=== PATIENT | male | born 1985 | race Caucasian/White ===

== ENCOUNTER 2017-06-21 18:38 | Emergency (ER) | payer MEDICAID ==
[~2017-06-21] VITALS: Ht 190.5 cm; Wt 65.0 kg
[~2017-06-21 18:38] MED LIST: CLON0.5T; FLUO40CA9 PO; PROP20TA
[2017-06-21] MEDS ORDERED: SODIUM CHLORIDE 0.9% 1,000 ML IV ONE (18:57)
[2017-06-21] MEDS ORDERED: ONDANSETRON 2MG/ML, 2ML IVPush ONE (19:00)
[2017-06-21] MEDS ORDERED: SODIUM CHLORIDE 0.9% 1,000ML IVBOLUS ONE (19:00)
[2017-06-21] MEDS ORDERED: ONDANSETRON 2MG/ML, 2ML ONE (19:21)
[2017-06-21] MEDS ORDERED: MORPHINE SULFATE 4 MG/ML, 1ML ONE ×2 (19:21→20:24)
[2017-06-21] MEDS: MORPHINE SULFATE 4 MG/ML, 1ML IVPush PRN ×2 (19:34→20:27)
[2017-06-21] MEDS ORDERED: LIDOCAINE 1%, 20ML SQ ONE (20:00)
[2017-06-21] MEDS ORDERED: DIPH,PERTUSS(ACELL),TET VAC/PF 0.5 ML IM-VACC ONE ×2 (20:00→20:25)
[2017-06-21] MEDS ORDERED: LIDOCAINE 1%, 20ML ONE (20:24)
[2017-06-21] MEDS ORDERED: BACITRACIN ZINC OINT 500U/GM, 0.9 GM ONE (21:45)
[2017-06-21 22:03] VITALS: BP 129/87
== END 2017-06-21 22:06 | disposition home or self-care (01) ==
LOC: ED 21:08
DX: S02.2XXA Fracture of nasal bones, initial encounter for closed fracture (principal); S01.112A Laceration without foreign body of left eyelid and periocular area, initial encounter; S01.81XA Laceration without foreign body of other part of head, initial encounter; S40.022A Contusion of left upper arm, initial encounter; F41.9 Anxiety disorder, unspecified; V29.3XXA Motorcycle rider (driver) (passenger) injured in unspecified nontraffic accident, initial encounter; Y92.89 Other specified places as the place of occurrence of the external cause; Y99.8 Other external cause status; Y93.55 Activity, bike riding
CPT/HCPCS: 12011; 70450; 70486; 72125; 73030; 73060; 90471; 90715; 96361; 96374; 96375; 96376; 99285; J2405; J7030; 12013; 12014

== ENCOUNTER 2018-01-29 02:32 | Emergency (ER) | payer MEDICAID ==
[~2018-01-29] VITALS: Ht 190.5 cm; Wt 70.7 kg
[2018-01-29 02:34] VITALS: BP 144/101
[2018-01-29] MEDS ORDERED: HYDROmorphone 1 MG/ML, 1ML IM ONE (03:00)
[2018-01-29] MEDS ORDERED: HYDROmorphone 2 MG/ML, 1ML ONE (03:04)
[2018-01-29 03:09] LABS: MICROSCOPIC INDICATED
[2018-01-29 03:10] LABS: CULTURE INDICATED? YES
[2018-01-29 03:21] LABS: AMPHETAMINE SCREEN, URINE Positive (Negative); BARBITURATE SCREEN, URINE Negative (Negative); BENZODIAZEPINE SCREEN, URINE Negative (Negative); CANNABINOID SCREEN, URINE Negative (Negative); COCAINE SCREEN, URINE Negative (Negative); METHADONE SCREEN, URINE Negative (Negative); OPIATE SCREEN, URINE Negative (Negative)
[2018-01-29] MEDS ORDERED: CEFTRIAXONE 250 MG ONE (04:24)
[2018-01-29] MEDS ORDERED: CEFTRIAXONE 1,000 MG IM ONE (04:30)
== END 2018-01-29 04:36 | disposition left against medical advice (07) ==
LOC: ED 03:34
DX: N45.1 Epididymitis (principal); F15.10 Other stimulant abuse, uncomplicated; F17.200 Nicotine dependence, unspecified, uncomplicated; Z79.899 Other long term (current) drug therapy
CPT/HCPCS: 76870; 80307; 81001; 87086; 87491; 87591; 93975; 96372; 99285; J1170

== ENCOUNTER 2018-07-27 17:41 | Emergency (ER) | payer MEDICAID | END 2018-07-27 18:12 | disposition left against medical advice (07) | LOC: ED 18:06 | DX: R11.2 Nausea with vomiting, unspecified (principal); R19.7 Diarrhea, unspecified; Z53.21 Procedure and treatment not carried out due to patient leaving prior to being seen by health care provider ==

== ENCOUNTER 2018-08-24 20:22 | Emergency (ER) | payer SELFPAY ==
[~2018-08-24] VITALS: Ht 193 cm; Wt 69.0 kg
[2018-08-24 20:26] VITALS: BP 142/104
[2018-08-24 21:09] LABS: AMPHETAMINE SCREEN, URINE Positive (Negative); BARBITURATE SCREEN, URINE Negative (Negative); BENZODIAZEPINE SCREEN, URINE Negative (Negative); CANNABINOID SCREEN, URINE Positive (Negative); COCAINE SCREEN, URINE Negative (Negative); METHADONE SCREEN, URINE Negative (Negative); OPIATE SCREEN, URINE Negative (Negative)
[2018-08-24] MEDS ORDERED: RISPERIDONE 2 MG TABLET ONE (21:15)
[2018-08-24] MEDS ORDERED: RISPERIDONE 1 MG TABLET PO ONE (21:30)
== END 2018-08-24 22:54 | disposition home or self-care (01) ==
LOC: ED 21:08
DX: F28 Other psychotic disorder not due to a substance or known physiological condition (principal); F32.9 Major depressive disorder, single episode, unspecified; R44.3 Hallucinations, unspecified; F17.210 Nicotine dependence, cigarettes, uncomplicated; F41.1 Generalized anxiety disorder
CPT/HCPCS: 80307; 99284

== ENCOUNTER 2018-10-11 18:15 | Emergency (ER) | payer MEDICAID ==
[~2018-10-11] VITALS: Ht 193 cm; Wt 70.0 kg
[2018-10-11 19:52] LABS: RAPID INFLUENZA A Negative (Negative); RAPID INFLUENZA B Negative (Negative)
[2018-10-11 20:15] VITALS: BP 129/74
== END 2018-10-11 20:24 | disposition home or self-care (01) ==
LOC: ED 20:18
DX: R00.0 Tachycardia, unspecified (principal); J06.9 Acute upper respiratory infection, unspecified; F15.10 Other stimulant abuse, uncomplicated
CPT/HCPCS: 71046; 87400; 93005; 99284

== ENCOUNTER 2018-11-21 20:00 | Emergency (ER) | payer MEDICAID ==
[2018-11-21] MEDS ORDERED: ONDANSETRON ODT 4 MG PO ONE (20:30)
[2018-11-21 20:49] LABS: BASOPHILS # (AUTO) 0.03 x10^3/uL (0-0.1); BASOPHILS % (AUTO) 0 % (0-1); EOSINOPHILS # (AUTO) 0.17 x10^3/uL (0-0.4); EOSINOPHILS % (AUTO) 3 % (1-7); LYMPHOCYTES % (AUTO) 26 % (22-44); MD NO; MEAN CORPUSCULAR HEMOGLOBIN 31.1 pg (27.5-34.5); MEAN CORPUSCULAR HGB CONC 34.3 g/dL (33.2-36.2); MEAN CORPUSCULAR VOLUME 90.7 fL (81-97); MEAN PLATELET VOLUME 7.9 fL (7.4-10.4); MONOCYTES # (AUTO) 0.46 x10^3/uL (0.2-0.8); MONOCYTES % (AUTO) 8 % (2-9); NEUTROPHILS % (AUTO) 63 % (42-75); PLATELET COUNT 323 x10^3/uL (130-400); RED BLOOD COUNT 5.03 x10^6/uL (4.38-5.82); RED CELL DISTRIBUTION WIDTH 13.6 % (9.4-14.8)
[2018-11-21 21:02] LABS: ALBUMIN 4.1 g/dL (3.4-5.0); ANION GAP 5 mmol/L (5-15); CALCIUM 8.9 mg/dL (8.5-10.1); CHLORIDE 107 mmol/L (98-107)
[2018-11-21] MEDS ORDERED: ONDANSETRON ODT 4 MG ONE (21:21)
--- NOTE | 2018-11-21 21:34 | NUR ---
FIRST CONTACT WITH PT. PT C/O N/V/D/BILATERAL LOWER ABD PAIN SINCE THIS AM. NO MASS/TENDER NOTED. PT'S AOX4. RESPS EVEN AND UNLABORED. BP/SPO2 MONITORS IN PLACE. CALL LIGHT WITHIN REACH. AWAITING EDMD ASSESSMENT AT THIS TIME.
--- NOTE | 2018-11-21 21:45 | NUR ---
pt medicated per emar. pt tolerated well. pt aox4. resps even and unlabored.
[2018-11-21 21:57] VITALS: BP 131/91
--- NOTE | 2018-11-21 22:03 | NUR ---
PT GIVEN DC INSTRUCTIONS AND SCRIPTS. PT EDUCATED REGARDING DC MEDICATION WHICH IS ZOFRAN. PT STATES "I FEEL MUCH BETTER." AT DC. PT AMB TO DC WITH STEADY GAIT. PT AOX4. RESPS EVEN AND UNLABORED. NO ACUTE DISTRESS AT DC.
== END 2018-11-21 21:59 | disposition home or self-care (01) ==
LOC: ED 21:53
DX: A09 Infectious gastroenteritis and colitis, unspecified (principal); F41.1 Generalized anxiety disorder; Z72.9 Problem related to lifestyle, unspecified
CPT/HCPCS: 36415; 80048; 82040; 85025; 99283; Q0162

== ENCOUNTER 2020-01-27 21:34 | Emergency (ER) | payer MEDICAID ==
[~2020-01-27] VITALS: Ht 193 cm; Wt 68.0 kg
[2020-01-27 21:36] VITALS: BP 142/88
== END 2020-01-27 22:05 | disposition home or self-care (01) ==
LOC: ED 21:45
DX: R19.7 Diarrhea, unspecified (principal); R10.9 Unspecified abdominal pain
CPT/HCPCS: 99283

== ENCOUNTER 2020-10-20 13:39 | Emergency (ER) | payer MEDICAID ==
[~2020-10-20] VITALS: Ht 190.5 cm; Wt 68.1 kg
--- NOTE | 2020-10-20 13:47 | NUR ---
ANDREZ AGNEL, FOUND OUTSIDE [facility], PT WITH HIVES ALL OVER CHEST ARMS AND LEGS AND DIFFICULTY BREATHING. NO RESP DISTRESS NOTED ON ARRIVAL. PER EMS PT DRANK ENTIRE BOTTLE OF PEDIATRIC BENEDRYL APPROX 30MIN SHOP LEAD. PT ALSO ADMITS TO USING HEROIN THIS AM APPROX 1100, STATES "ITS THE SAME STUFF I ALWAYS USE" PT DOES NOT RECALL WHAT COULD HAVE CAUSED AN ALLERGIC REACTION. PT TO ALL MONITORS AT THIS TIME. AWAITING ERMD EVAL/ORDERS
[2020-10-20] MEDS ORDERED: methylPREDNISolone SOD SUCC 125 MG/2 ML IVPush SCH (14:00)
[2020-10-20] MEDS ORDERED: methylPREDNISolone SOD SUCC 125 MG/2 ML ONE (14:04)
--- NOTE | 2020-10-20 14:15 | NUR ---
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 PT IN BATHROOM FOR SEVERAL MINUTES.
[2020-10-20] MEDS ORDERED: EPINEPHRINE 1 MG/ML, 1ML ONE (15:43)
--- NOTE | 2020-10-20 15:53 | NUR ---
TASK RN: PT W CONTINUED RASH. ORDER RECEIVED FOR EPI SQ. DOSE/MEDICATION CONFIRMED WITH EILEEN, RN. PT TACHY, HR 100-115. ERP AWARE. OKAY TO ADMINISTER RX.
[2020-10-20] MEDS ORDERED: EPINEPHRINE 1 MG/ML, 1ML SQ ONE (16:00)
[2020-10-20 16:55] VITALS: BP 102/71
--- NOTE | 2020-10-20 17:39 | NUR ---
PT RESTING ON CORINE, VSS, RASH SEEMS TO HAVE IMPROVED SOME, WILL UPDATE ERMDD. NAD NOTED AT THIS TIME
--- NOTE | 2020-10-20 17:51 | NUR ---
PT NOW MORE AWAKE, ERMD IN TO EVAL, PT TO BE DISCHARGED HOME
== END 2020-10-20 18:22 | disposition home or self-care (01) ==
LOC: ED 14:28
DX: L50.9 Urticaria, unspecified (principal); R22.0 Localized swelling, mass and lump, head; R21 Rash and other nonspecific skin eruption; R00.0 Tachycardia, unspecified
CPT/HCPCS: 93005; 96372; 96374; 99285; J0171; J2930